=== PATIENT | female | born 1945 | race Caucasian/White ===

== ENCOUNTER → 2018-01-17 | Outpatient (CLI) | payer MEDICARE, OTHER ==
[~2018-01-17] MED LIST: "\\\"BP PILL\\\""; KLONOPIN; PERCOCET; SEROQUEL; SEROQUEL300 MG PO; XANAX0.5 MG PO; ZOLOFT25 MG PO
== END | disposition home or self-care (01) ==
LOC: CDC 12:08
DX: Z79.891 Long term (current) use of opiate analgesic (principal); R94.31 Abnormal electrocardiogram [ECG] [EKG]
CPT/HCPCS: 93000